=== PATIENT | female | born 1985 | race Caucasian/White ===

== ENCOUNTER 2024-02-10 11:58 | Outpatient (CLI) | payer MEDICAID ==
[2024-02-10 12:19] LABS: BASOPHILS # (AUTO) 0.1 10^3/uL (0.0-0.1); EOSINOPHILS # (AUTO) 0.1 10^3/uL (0.0-0.7); EOSINOPHILS % (AUTO) 1.4 %; HCT - HEMATOCRIT 37.3 % (37.0-47.0); LYMPHOCYTES % (AUTO) 25.8 %; MEAN CORPUSCULAR HEMOGLOBIN 24.2 pg (27.0-31.0); MEAN CORPUSCULAR HGB CONC 29.5 g/dL (32.0-36.0); MEAN CORPUSCULAR VOLUME 82.2 fL (81.0-99.0); MEAN PLATELET VOLUME 9.4 fL (7.9-10.8); MONOCYTES # (AUTO) 0.5 10^3/uL (0.0-1.0); MONOCYTES % (AUTO) 6.9 %; NEUTROPHILS # (AUTO) 5.1 10^3/uL (1.5-6.6); NEUTROPHILS % (AUTO) 64.6 %; PLT - PLATELET COUNT 396 10^3/uL (130-450); RED BLOOD COUNT 4.54 10^6/uL (4.20-5.40); RED CELL DISTRIBUTION WIDTH 15.2 % (12.0-15.0); WHITE BLOOD COUNT 7.9 x10^3/uL (4.8-10.8)
[2024-02-10 12:34] LABS: ALBUMIN 3.9 g/dL (3.2-5.5); ALBUMIN/GLOBULIN RATIO 1.2 (1.0-2.2); BILIRUBIN,TOTAL 0.4 mg/dL (0.2-1.0); CALCIUM 9.7 mg/dL (8.5-10.3); CREATININE 0.7 mg/dL (0.6-1.3); POTASSIUM 4.3 mmol/L (3.5-4.5); TOTAL PROTEIN 7.1 g/dL (6.4-8.9)
[2024-02-10 13:35] LABS: CREATININE,URINE 268.9 mg/dL; PROTEIN/CREATININE RATIO,URINE 0.1 (<=0.2)
== END 2024-02-10 11:59 | disposition home or self-care (01) ==
LOC: LAB 11:58
PROVIDERS: ATTEND Nurse Practitioner
DX: Z87.59 Personal history of other complications of pregnancy, childbirth and the puerperium (principal)
CPT/HCPCS: 36415; 80053; 82570; 84156; 85025